=== PATIENT | female | born 2000 | race Caucasian/White ===

== ENCOUNTER → 2019-11-06 10:16 | Outpatient (CLI) | payer OTHER, SELFPAY ==
[2019-11-06 12:10] LABS: Add Manual Diff / Slide Review NO; Basophils Absolute Auto 0 /uL (0-100); Basophils Percent Auto 0.5 % (0-2); Eosinophils Absolute Auto 100 /uL (0-450); Eosinophils Percent Auto 1.3 % (2-4); Hematocrit 40.8 % (36-46); Hemoglobin 13.9 g/dL (12.0-16.0); Lymphocytes Absolute Auto 2200 /uL (1100-4500); Lymphocytes Percent Auto 32.4 % (25-40); Mean Corpuscular HGB Conc 34.1 % (30-36); Mean Corpuscular Hemoglobin 29.5 PG (26-34); Mean Corpuscular Volume 86.7 fL (80-100); Monocytes Absolute Auto 500 /uL (0-900); Monocytes Percent Auto 7.6 % (3-14); Neutrophils Absolute Auto 4000 /uL (1500-7000); Neutrophils Percent Auto 58.2 % (50-75); Platelet Count 245 X10^3/uL (150-400); Red Blood Cell Count 4.71 X10^6/uL (4.0-5.2); White Blood Cell Count 6.8 X10^3/uL (4.5-11.0)
[2019-11-06 12:58] LABS: Free T4, Direct Thyroxine 1.08 ng/dL (0.78-2.19)
[2019-11-06 13:11] LABS: Thyroid Stimulating Hormone 1.87 uIU/mL (0.47-4.68)
== END ==
PROVIDERS: PCP Family Medicine; Referring Provider Family Medicine; Visit Provider Family Medicine
DX: F31.81 Bipolar II disorder (principal)
CPT/HCPCS: 36415; 84439; 84443; 84481; 85025

== ENCOUNTER 2021-01-25 13:36 | Emergency (ER) | payer OTHER, SELFPAY ==
[2021-01-25 13:38] VITALS: BP 141/65; PULSE 91; RESP 14; TEMP 36.9; O2SAT 100; BMI 21.6
--- NOTE | 2021-01-25 13:47 | ED.BACK ---
HPI - Back Pain/Injury <Grzegorz Cook PA-C - Last Filed: 01/25/21 16:09> General Chief Complaint: Back Pain/Injury Stated Complaint: Severe back pain where she had surgery 2 yrs ago Time Seen by Provider: 01/25/21 13:47 Source: patient Limitations: no limitations History of Present Illness HPI Narrative: 20-year-old female with past medical history anxiety, bipolar 2 disorder, status post 2 diskectomies presents to the ED with 2 days of lower back pain. Patient felt a twinge when she was reaching over yesterday, followed by left-sided lower back pain. Patient endorses 10/10 pain, has extreme pain when she moves. Pain does not radiate. Patient took some naproxen this morning with no relief. Patient denies numbness, tingling, weakness, urinary hesitancy, urinary incontinence, saddle paresthesias, stool incontinence. Patient denies IV drug use. Patient states that the pain feels similar to when she had to have the prior disc surgeries. Related Data Home Medications Medication Instructions Recorded Confirmed etonogestrel 68 mg subdermal SUBDERMAL 12/11/19 01/27/21 implant (Nexplanon) Previous Rx's Medication Instructions Recorded lamotrigine 100 mg tablet 200 mg PO BID #120 tab 06/15/20 gabapentin 100 mg capsule 600 mg PO TID #120 cap 01/27/21 oxycodone 10 mg tablet 10 mg PO Q8H PRN #90 tab 01/27/21 Allergies Allergy/AdvReac Type Severity Reaction Status Date / Time No Known Drug Allergies Allergy Verified 01/25/21 13:43 Review of Systems <Grzegorz Cook PA-C - Last Filed: 01/25/21 16:09> Constitutional Constitutional: Denies chills, Denies fatigue, Denies fever(s), Denies frequent falls, Denies lethargy and Denies weakness Eyes Eyes: Denies change in vision, Denies eye discharge, Denies irritation and Denies loss of vision ENT Ears, Nose, Mouth, and Throat: Denies change in voice, Denies dizziness, Denies neck pain, Denies sore throat and Denies throat swelling Cardiovascular Cardiovascular: Denies chest pain, Denies irregular heart rhythm, Denies lightheadedness, Denies palpitations, Denies dyspnea, Denies dyspnea on exertion and Denies orthopnea Respiratory Respiratory: Denies cough, Denies dyspnea, Denies dyspnea on exertion and Denies wheezing Gastrointestinal Gastrointestinal: Denies abdominal pain, Denies change in bowel habits, Denies diarrhea, Denies nausea and Denies vomiting Musculoskeletal Musculoskeletal: Denies abnormal gait, Reports back pain, Denies muscle weakness, Denies neck pain, Denies numbness, Denies radiating pain into limb and Denies tingling Integumentary/Breasts Skin/Breast: Denies pruritus, Denies erythema, Denies rash and Denies wounds Neurologic Neurologic: Denies abnormal gait, Denies behavioral changes, Denies confusion, Denies dizziness, Denies frequent falls, Denies loss of vision, Denies numbness, Denies tingling and Denies weakness Psychiatric Psychiatric: Denies anxiety, Denies behavioral changes, Denies confusion, Denies depression, Denies homicidal ideation and Denies suicidal ideation Endocrine Endocrine: Denies fatigue, Denies flushing and Denies palpitations Hematologic/Lymphatic Hematologic/Lymphatic: Denies easy bruising Allergic/Immunologic Allergic/Immunologic: Denies urticaria, Denies throat swelling and Denies wheezing Patient History <Grzegorz Cook PA-C - Last Filed: 01/25/21 16:09> Medical History Anemia (~2017) Anxiety (~2016) Bipolar 2 disorder Chronic back pain (~2016) Depression (~2016) Eating disorder Lumbar region somatic dysfunction Pelvic somatic dysfunction PLEVA (pityriasis lichenoides et varioliformis acuta) (~2000) Sacral region somatic dysfunction Surgical History Anesthesia History of discectomy (~05/13/19) History of microdiscectomy (~06/08/18) Family History Father Skin cancer Mother No problems noted. Social History Smoking Status: Never smoker alcohol intake: never substance use type: former substance user Smoking Status: Never smoker alcohol intake frequency: holidays/special occasions only Substance Use Type: does not use Exam <Grzegorz Cook PA-C - Last Filed: 01/25/21 16:09> Initial Vital Signs Initial Vital Signs: Vital Signs Temperature 98.4 F 01/25/21 13:38 Pulse Rate 91 H 01/25/21 13:38 Respiratory Rate 14 01/25/21 13:38 Blood Pressure 141/65 H 01/25/21 13:38 Pulse Oximetry 100 01/25/21 13:38 Const General: cooperative [facility] Head: normocephalic and atraumatic Ears: external ears normal and TM's normal bilaterally Nose: external nose normal and No nasal discharge Face and sinus: sinuses nontender, face symmetric, no sinus tenderness and No dry mucous membranes Mouth: oral mucosae normal and moist mucous membranes Teeth and gingiva: dentition normal Throat: tonsils normal and uvula midline Eyes General: appearance normal, both eyes and all related structures Eyelids: eyelids normal Conjunctivae: conjunctivae normal Sclera: sclerae normal Pupils: PERRL EOM: EOM intact bilaterally Neck Neck: normal visual inspection, trachea midline, No lymphadenopathy, No midline deformity and No JVD Lymphatic: No lymphedema Chest Chest: normal inspection of the chest Resp Effort & Inspection: normal respiratory effort, able to speak in complete sentences, no respiratory distress and no use of accessory muscles Auscultation: clear to auscultation bilaterally, no rales, no rhonchi and no wheezes Cardio Rate: regular rate Rhythm: regular rhythm Heart Sounds: no click, no gallops, no murmurs and no rubs Pulses: normal peripheral pulses GI Inspection: non-distended Palpation: soft, no hepatosplenomegaly, No guarding, No pulsatile mass and No tender Auscultation: normal bowel sounds Back/Spine/Pelvis Back: No back tenderness and No CVA tenderness Cervical Spine: cervical ROM normal and No pain with cervical ROM Thoracic/Lumbar Spine: thoracic and lumbar spine normal to inspection Other: No midline tenderness. Full range of motion. Range of motion limited by pain. Strength and sensation intact. Neurovascularly intact. Unable to test SLR or cross SLR due to pain. Patient able to flex/extend bilateral hallux. Skin General: no rashes or lesions noted, No jaundice and No petechiae Neuro General: patient alert, patient oriented x3, gait normal and no focal motor deficits Speech: speech normal Other: Strength and sensation intact. Full range of motion Extrem General: full ROM, no clubbing, cyanosis or edema, no pedal edema and no calf tenderness Psych Appearance: well kempt Mental Status: mental status grossly normal Attitude: cooperative Thought Content: normal and suicidality Judgment: judgment good <Dileep España DO - Last Filed: 01/28/21 08:39> Initial Vital Signs Initial Vital Signs: Vital Signs Temperature 98.4 F 01/25/21 13:38 Pulse Rate 91 H 01/25/21 13:38 Respiratory Rate 14 01/25/21 13:38 Blood Pressure 141/65 H 01/25/21 13:38 Pulse Oximetry 100 01/25/21 13:38 Course <Grzegorz Cook PA-C - Last Filed: 01/25/21 16:09> Course Course Narrative: Physical exam reassuring for no saddle paresthesias, numbness, tingling, weakness, urinary hesitancy, urinary incontinence, stool incontinence. Patient's symptoms improved with Flexeril, ketorolac, lidocaine patch, morphine, Tylenol. Will discharge home with ED return precautions, prescription for Flexeril. Orders Ordered: Discontinued Medications Acetaminophen (Acetaminophen 325 Mg Tablet) 975 mg PO NOW ONE Stop: 01/25/21 16:04 Last Admin: 01/25/21 16:25 Dose: Not Given Documented by: ANITA Cyclobenzaprine HCl (Cyclobenzaprine 10 Mg Tablet) 10 mg PO NOW ONE Stop: 01/25/21 13:58 Last Admin: 01/25/21 14:05 Dose: 10 mg Documented by: ANITA Ketorolac Tromethamine (Ketorolac 30 Mg/Ml Vial) 15 mg IM NOW ONE Stop: 01/25/21 13:58 Last Admin: 01/25/21 14:04 Dose: 15 mg Documented by: ANITA Lidocaine (Lidocaine Patch 1 Each Adh..Patch) 1 each TOP NOW ONE Stop: 01/25/21 14:54 Last Admin: 01/25/21 15:05 Dose: 1 each Documented by: ANITA Lidocaine (Remove Lidocaine Patch) 1 each TOP BEDTIME HARI Morphine Sulfate (Morphine 4 Mg/Ml Inj) 4 mg IM NOW ONE Stop: 01/25/21 14:54 Last Admin: 01/25/21 15:05 Dose: 4 mg Documented by: ANITA Vital Signs Vital signs: Vital Signs - 8 hr 01/25/21 13:38 Temperature 98.4 F Pulse Rate 91 H Respiratory Rate 14 Blood Pressure 141/65 H Pulse Oximetry 100 <Dileep España DO - Last Filed: 01/28/21 08:39> Orders Ordered: Discontinued Medications Acetaminophen (Acetaminophen 325 Mg Tablet) 975 mg PO NOW ONE Stop: 01/25/21 16:04 Last Admin: 01/25/21 16:25 Dose: Not Given Documented by: ANITA Cyclobenzaprine HCl (Cyclobenzaprine 10 Mg Tablet) 10 mg PO NOW ONE Stop: 01/25/21 13:58 Last Admin: 01/25/21 14:05 Dose: 10 mg Documented by: ANITA Ketorolac Tromethamine (Ketorolac 30 Mg/Ml Vial) 15 mg IM NOW ONE Stop: 01/25/21 13:58 Last Admin: 01/25/21 14:04 Dose: 15 mg Documented by: ANITA Lidocaine (Lidocaine Patch 1 Each Adh..Patch) 1 each TOP NOW ONE Stop: 01/25/21 14:54 Last Admin: 01/25/21 15:05 Dose: 1 each Documented by: ANITA Lidocaine (Remove Lidocaine Patch) 1 each TOP BEDTIME HARI Morphine Sulfate (Morphine 4 Mg/Ml Inj) 4 mg IM NOW ONE Stop: 01/25/21 14:54 Last Admin: 01/25/21 15:05 Dose: 4 mg Documented by: ANITA Vital Signs Vital signs: Vital Signs - 8 hr 01/25/21 13:38 Temperature 98.4 F Pulse Rate 91 H Respiratory Rate 14 Blood Pressure 141/65 H Pulse Oximetry 100 MDM - Back Pain/Injury <Grzegorz Cook PA-C - Last Filed: 01/25/21 16:09> [facility] Narrative Medical decision making narrative: 20-year-old female with past medical history anxiety, bipolar 2 disorder, status post 2 diskectomies presents to the ED with 2 days of lower back pain. Concern for acute muscle strain versus disc herniation. Unlikely fractures or dislocations, given no midline tenderness to palpation. Patient's physical exam, history not concerning for cauda equina. Unlikely spinal epidural abscess, given no history of IV drug use or systemic symptoms. Will treat pain with Flexeril and Toradol, reassess. Likely discharge home with neurosurgery follow-up. Discharge Plan Departure Patient Disposition: Home Clinical Impression: Lower back pain Qualifiers: Chronicity: acute Back pain laterality: left Sciatica presence: without sciatica Qualified Code(s): M54.50 - Low back pain, unspecified Instructions: DI for Low Back Pain Activity Restrictions/Additional Instructions: You were evaluated today for lower back pain. Your physical exam is reassuring and does not indicate a spinal emergency. Your MRI showed the annulus tear in the L5-S1 disc, small central disc extrusion of L4-L5, which is what is likely contributing to your symptoms. Your symptoms improved with pain medications. You may continue to take ibuprofen, Tylenol, Flexeril for your symptoms. You can follow-up with [facility] at [phone]. Please return to the ED if you have any worsening symptoms, fever, chills, difficulty urinating, urinary incontinence, stool incontinence, numbness, tingling, weakness. Prescriptions: No Action Nexplanon 68 mg implant subdermal RF: 0 lamotrigine 100 mg tablet 200 mg PO BID Qty: 120 RF: 1 oxycodone 10 mg tablet 10 mg PO Q8H PRN (Reason: pain) Qty: 90 RF: 0 gabapentin 100 mg capsule 600 mg PO TID Qty: 120 RF: 0 Referrals: Aldo Reyes DO [Primary Care Provider] - <Dileep España DO - Last Filed: 01/28/21 08:39> [facility] ED Attending Leonidature Attestation: I was immediately available in the department for consultation. This documentation has been reviewed and I agree with assessment and plan. Supervised by Dileep España DO
[2021-01-25] MEDS: KETOROLAC 30 MG/ML VIAL 15 MG IM (14:04)
[2021-01-25] MEDS: CYCLOBENZAPRINE 10 MG TABLET PO (14:05)
[2021-01-25] MEDS: LIDOCAINE PATCH 1 EACH ADH..PATCH TOP (15:05)
[2021-01-25] MEDS: MORPHINE 4 MG/ML INJ IM (15:05)
--- NOTE | 2021-01-25 16:22 | DI.MRI.S_ITS ---
PROCEDURE: MR LUMBAR SPINE WO CON INDICATIONS: low back pain TECHNIQUE: Noncontrast sagittal T1 spin echo and T2 fast echo, sagittal STIR, axial T1 and T2 fast spin echo through the lumbar spine. In cases with scoliosis, additional coronal T2 fast spin echo may be performed. COMPARISON: None. FINDINGS: Image quality: Excellent. Alignment and Curvature: There is normal bony alignment. Bone Marrow: Marrow is of normal overall signal. No acute vertebral body compression fractures. Spinal Cord: Conus medullaris terminates at the L1 level. Visualized cord demonstrates normal signal and size. Paraspinous Soft Tissues: No paravertebral masses. T12-L1: Normal appearance. L1-L2: Normal appearance. L2-L3: Normal appearance. L3-L4: Normal appearance. L4-L5: Loss of disc signal. Mild, diffuse disc bulge. Small central disc extrusion. Extruded disc material extends inferiorly along the posterior margin of the L5 vertebral body to a pedicular level. Mild of central canal. No neural foraminal narrowing. No neural compression. L5-S1: Loss of disc signal. Mild, diffuse disc bulge. Small central disc protrusion. Posterior, right central disc annulus tear. No central stenosis. Mild right neural foraminal narrowing. No neural compression. IMPRESSION: 1. Mild L4-L5 and L5-S1 degenerative disc disease. 2. Mild L4-L5 central canal narrowing. 3. Mild right -S1 neural foraminal narrowing. 4. No neural compression. 5. Small L4-L5 central disc extrusion. 6. L5-S1 disc annulus tear. Dictated by: Yokasta Benitez MD, PhD on 01/25/2021 at 16:22 Approved by: Yokasta Benitez MD, PhD on 01/25/2021 at 16:26
== END 2021-01-25 18:02 | disposition home or self-care (01) ==
PROVIDERS: Emergency Provider Student in an Organized Health Care Education/Training Program; PCP Family Medicine
DX: M54.50 Low back pain, unspecified (principal)
CPT/HCPCS: 72148; 96372; 99283; 99284; J1885; J2270